=== PATIENT | male | born 1975 | race Caucasian/White ===

== ENCOUNTER 2020-03-28 20:30 | Emergency (ER) | payer SELFPAY ==
--- NOTE | 2020-03-28 20:52 | ER Document Report ---
ED Skin Rash/Insect Bite/Abscs - General Chief Complaint: Rash Stated Complaint: RASH Time Seen by Provider: 03/28/20 20:34 Primary Care Provider: [facility] [Provider Group] - Follow up as needed [facility] [Provider Group] - Follow up as needed [facility] [Provider Group] - Follow up as needed YESENIA WEBSTER DO [ACTIVE STAFF] - Follow up as needed Mode of Arrival: Ambulatory Information source: Patient Notes: 45-year-old male presented to ED for rash to both feet abdomen chest back and arms. He states that 1 to the abdomen back chest and arms started yesterday and has progressed to what it is now in 1 day. He states that the rash to both feet and lower legs has been there for several months and has been treating it with multiple treatments and nothing seems to help. He is here today because the itching and irritation has gotten past where he can stand anymore. I have taken pictures of his feet and taken back and showed them to Dr. Casper. He agreed that I should try treatment with prednisone you should cream and vitamin E oil and that he needs to follow-up with a broomcorn scraper. He did recommend that I give a dose of 10 mg a day for 10 days of the prednisone. I have written this dose for the patient. Constitutional: Negative for fever. HENT: Negative for sore throat. Eyes: Negative for visual changes. Cardiovascular: Negative for chest pain. Respiratory: Negative for shortness of breath. Gastrointestinal: Negative for abdominal pain, vomiting or diarrhea. Genitourinary: Negative for dysuria. Musculoskeletal: Negative for back pain. Skin: Small maculopapules to the abdomen chest arms and legs. These of all been scratch so it is difficult to tell exactly what it started out like. They do appear to be some type of insect bite but patient states that these have only on him and they are not on his . They could be an allergic dermatitis he states he has not been around anything different. He does have cats and dogs at home. The rash to his feet is in a plaque form with inflammation and irritation around it. I have also showed this [address] Casper who stated that the treatment of prednisone and usually cream mixed with vitamin E or and he still needs to follow-up with a broomcorn scraper. Neurological: Negative for headaches, weakness or numbness. 10 point ROS negative except as marked above and in HPI. VITAL SIGNS: Within normal limits. GENERAL: No acute distress, non-toxic appearance. HEAD: Normal with no signs of head trauma. EYES: PERRLA, EOMI, conjunctiva normal, no discharge. EARS: Hearing grossly intact. NOSE: Normal. THROAT: Oropharynx is normal. NECK: Normal range of motion, no tenderness, supple, no lymphadenopathy, No adenopathy, no JVD. CHEST: Clear breath sounds bilaterally. No wheezes, rales, or rhonchi. CARDIAC: Regular rate and rhythm. S1 and S2, without murmurs, gallops, or rubs. VASCULAR: No Edema. Peripheral pulses normal and equal in all extremities. ABDOMEN: Normal and soft with no tenderness, no masses or pulsatile masses. GASTROINTESTINAL: Bowel sounds normal GENITOURINARY: Normal, No tenderness LYMPATHTIC: No lymphadenopathy noted. MUSCULOSKELETAL: Good range of motion of all major joints. Extremities without clubbing, cyanosis or edema. NEUROLOGICAL: Alert and oriented x 3. No focal sensory or strength deficits. Speech normal. Follows commands appropriately. PSYCHIATRIC: Normal Affect, judgement and mood. SKIN: Large patch of inflamed plaque type rash to both feet patient states he christianson s had for several months. Multiple small macular papules that have been scratched to both arms upper abdomen chest and upper back the patient states started yesterday - HPI Patient complains to provider of: Skin rash/lesion Onset: Other - See HPI Onset/Duration: Gradual Quality of pain: Burning - And itching Severity: Mild Pain Level: 1 Skin Character: Erythema, Rash Quality of rash: Itchy, Painful, Burning Identify cause: No Exacerbated by: Denies Relieved by: Denies Similar symptoms previously: Yes Recently seen / treated by doctor: No Past Medical History - General Information source: Patient - Social History Smoking Status: Never Smoker Frequency of alcohol use: Occasional Drug Abuse: None Lives with: Family Family History: Reviewed & Not Pertinent Patient has suicidal ideation: No Patient has homicidal ideation: No - Past Medical History Cardiac Medical History: Reports: Hx Hypertension Pulmonary Medical History: Reports: None EENT Medical History: Reports: None Neurological Medical History: Reports: None Endocrine Medical History: Reports: None Renal/ Medical History: Reports: None Malignancy Medical History: Reports None GI Medical History: Reports: None Musculoskeletal Medical History: Reports None Skin Medical History: Reports None Psychiatric Medical History: Reports: None Traumatic Medical History: Reports: None Infectious Medical History: Reports: None Surgical Hx: Negative Past Surgical History: Reports: None - Immunizations Immunizations up to date: Yes Physical Exam - Vital signs Vitals: Temp Pulse Resp BP Pulse Ox 98.1 F 100 20 134/99 H 100 03/28/20 20:55 03/28/20 20:55 03/28/20 20:55 03/28/20 20:55 03/28/20 20:55 Course - Vital Signs Vital signs: Temp Pulse Resp BP Pulse Ox 98.1 F 100 20 134/99 H 100 03/28/20 20:55 03/28/20 20:55 03/28/20 20:55 03/28/20 20:55 03/28/20 20:55 Discharge - Discharge Clinical Impression: Rash and nonspecific skin eruption Condition: Stable Disposition: HOME, SELF-CARE Additional Instructions: You were seen today for 2 different kind of rashes 1 rash on your feet that is very excoriated and pain another type of rash that was together back chest and arms. As to your feet you state you have had for several months. You state you have used different things to it and is not clearing up. You state you have not been to a doctor. STEROID MEDICATION: You have been given a medicine of the cortisone/steroid class. This medication is used to control inflammation or allergy. It is usually only given for a short period of time, until the acute process subsides. There are usually no side effects from short-term use of cortisone-like medications. Some persons feel an increased sense of well-being and are not sleepy at bedtime. Long-term use of cortisone medications is best avoided, unless required for a severe condition. If your condition does not remit, or relapses after the course of corticosteroid medication, you should consult your physician. I would also recommend you use Eucerin cream mixed with vitamin E oil. Use a moderate sized jar of the usual cream and mix one small bottle of vitamin E oil in the usual cream and then apply a generous amount 3 times a day to the rash on both feet. Then I would recommend that you wash your feet 3 times a day before applying the cream and then change her socks frequently to ensure that you have clean dry socks on. Diphenhydramine The use of diphenhydramine (Benadryl) has been recommended to control allergic symptoms. The 25 mg strength is available over- the-counter, as well as the elixir. This antihistamine is used for many symptoms. It's useful for itching, watering eyes and nose, allergic swelling, hives, and insect stings. The medication can be repeated four times daily. Age Elixir (12.5 mg/tsp) 25 mg pill 1 yr 1/4 tsp 2-3 yr 1/2 tsp 4-8 yr 1 tsp 9-14 yr 2 tsp one tab adult 1-2 tabs Antihistamines may cause drowsiness, especially with the first dose. Do not operate machinery or drive while under the effects of the medication. Do not combine the medication with alcohol, or with any other medication without talking to your doctor. FOLLOW-UP CARE: If you have been referred to a physician for follow-up care, call the physicians office for an appointment as you were instructed or within the next two days. If you experience worsening or a significant change in your symptoms, notify the physician immediately or return to the Emergency Department at any time for re-evaluation. Prescriptions: Prednisone 10 mg PO DAILY #10 tablet Forms: Elevated Blood Pressure Referrals: [facility] [Provider Group] - Follow up as needed [facility] [Provider Group] - Follow up as needed YESENIA WEBSTER DO [ACTIVE STAFF] - Follow up as needed [facility] [Provider Group] - Follow up as needed
[2020-03-28 20:57] VITALS: BP 134/99
== END 2020-03-28 21:05 | disposition home or self-care (01) ==
LOC: ER 20:30
DX: R21 Rash and other nonspecific skin eruption (principal); I10 Essential (primary) hypertension
CPT/HCPCS: 99283